=== PATIENT | male | born 1945 | race Hispanic/Latino ===

== ENCOUNTER 2017-10-20 17:12 | Observation (INO) | payer MEDICARE ==
[2017-10-20] MEDS ORDERED: Sodium Chloride 0.9% 1,000 ML IV ONE ×2 (17:45→17:46)
--- NOTE | 2017-10-20 17:49 | C.PDOC ---
History Of Present Illness <Marii Haas - Last Filed: 10/20/17 18:36> <Rosalind Duran - Last Filed: 10/20/17 19:37> 72 yo male w/PMHx of HTN, alcohol use daily, morbid obesity, BIBA for evaluation of fall/[id number] episode sustained AMBULATORY CARE NURSE. Pt admits, " was drinking few beer today, went outside to bring my car, open gait and fell down" . AT present time, pt appears intoxicated, but AAO#3, not in any apparent distress, pt denies any active complaints at present time. As per EMS, FSBS on scene >500. Pt admits, leaves alone, appears unkept. (Marii Haas) History Per: Patient, EMS <Marii Haas - Last Filed: 10/20/17 18:36> <Rosalind Duran - Last Filed: 10/20/17 19:37> Time Seen by Provider: 10/20/17 17:34 Chief Complaint (Nursing): Weakness/Neurological Deficit Past Medical History Reviewed: Historical Data, Nursing Documentation, Vital Signs - Medical History PMH: HTN Other PMH: morbid obesity Surgical History: No Surg Hx Family History: States: No Known Family Hx - Social History Hx Tobacco Use: No Hx Alcohol Use: Yes Hx Substance Use: No <SaminaMarii - Last Filed: 10/20/17 18:36> Vital Signs: Last Vital Signs Temp 98.9 F 10/20/17 17:28 Pulse 107 H 10/20/17 17:28 Resp 16 10/20/17 17:28 BP 168/89 H 10/20/17 17:28 Pulse Ox 96 10/20/17 18:38 Review Of Systems Except As Marked, All Systems Reviewed And Found Negative. Constitutional: Negative for: Fever, Chills Eyes: Negative for: Vision Change ENT: Negative for: Ear Discharge, Nose Discharge, Throat Pain, Throat Swelling Cardiovascular: Negative for: Chest Pain, Palpitations, Orthopnea Respiratory: Negative for: Cough, Shortness of Breath Gastrointestinal: Negative for: Nausea, Vomiting, Abdominal Pain, Diarrhea Genitourinary: Negative for: Incontinence Musculoskeletal: Negative for: Neck Pain, Back Pain Skin: Negative for: Rash Neurological: Positive for: Altered Mental Status. Negative for: Weakness, Numbness, Headache, Dizziness <Marii Haas - Last Filed: 10/20/17 18:36> Physical Exam - Physical Exam Appears: Well, Non-toxic, No Acute Distress, Unkempt Skin: Normal Color, Warm, No Rash, No Ecchymosis Head: Atraumatic, Normacephalic Eye(s): bilateral: PERRL Nose: No Flaring, No Discharge, No Deformity, No Tenderness Oral Mucosa: Moist, No Drooling, No Trismus, Other (strong alcohol odor) Tongue: Normal Appearing Lips: Normal Appearing Throat: No Drooling Neck: Normal ROM, Trachea Midline, No Midline Cervical Tenderness, No Paracervical Tenderness, No Step Off Deformity, Supple Cardiovascular: Rhythm Regular (tachy), No Murmur, No JVD Respiratory: No Decreased Breath Sounds, No Accessory Muscle Use, No Rales, No Rhonchi, No Stridor, No Wheezing, No Plerual Rub Gastrointestinal/Abdominal: Soft, No Tenderness, Distention, No Guarding, No Rebound Back: No CVA Tenderness Extremity: Normal ROM, Tenderness (mild over Right olecranon, nopalpable defromity. NO open wound), No Pedal Edema Neurological/Psych: Oriented x3, Normal Speech, Normal Motor, Normal Sensation, Normal Reflexes <Marii Haas Last Filed: 10/20/17 18:36> ED Course And Treatment O2 Sat by Pulse Oximetry: 96 Pulse Ox Interpretation: Normal - Radiology CXR: Interpreted by Me, Viewed By Me CXR Interpretation: Yes: Cardiomegaly - Other Rad Right elbow X-Ray: Interpreted by Me, Viewed By Me Interpretation: (+) olecranon fx <Marii Haas - Last Filed: 10/20/17 18:36> - Laboratory Results Result Diagrams: 10/20/17 18:57 10/20/17 18:57 Lab Interpretation: Abnormal (WBC 17.3, glucose 33 5,HCO3 18,) - CT Scan/US Head Other Rad Studies (CT/US): Read By Radiologist, Radiology Report Reviewed CT/US Interpretation: EXAM: CT Head Without Intravenous Contrast. EXAM DATE/ TIME: Examination ordered 10/20/2017 5:46 PM. Image number total count reviewed 400. CLINICAL HISTORY: The patient is 72 years old and is male; Signs and symptoms; Altered mental status/memory loss;. Confusion or disorientation; Additional info: [facility] Facility exam id and description: Ct_heads head w/o. contrast. TECHNIQUE: Axial computed tomography images of the head/brain without intravenous contrast. All CT scans at. this facility use at least one of these dose optimization techniques: automated exposure control; mA. and/or kV adjustment per patient size (includes targeted exams where dose is matched to clinical. indication); or iterative reconstruction. Coronal and sagittal reformatted images were created and reviewed. COMPARISON: No relevant prior studies available. FINDINGS: BRAIN: Periventricular hypoattenuation suggestive of chronic ischemic changes. No hemorrhage. VENTRICLES: Unremarkable. No ventriculomegaly. BONES/JOINTS: Unremarkable. No acute fracture. SOFT TISSUES: Unremarkable. SINUSES: Unremarkable as visualized. No acute sinusitis. MASTOID AIR CELLS: Unremarkable as visualized. No mastoid effusion. IMPRESSION: Periventricular hypoattenuation suggestive of chronic ischemic changes. Progress Note: Patient placed in a posterior splint and sling. Reevaluation Time: 19:29 Reassessment Condition: Unchanged - Physician Consult Information Time Consulting Physician Contacted: 19:29 Physician Contacted: Tian Nash Outcome Of Conversation: Patient to remain in hospital for observation for alcohol intoxication with possible syncope, fall with olecranon fracture. <Rosalind Duran - Last Filed: 10/20/17 19:37> Disposition <Marii Haas - Last Filed: 10/20/17 18:36> - Disposition Disposition Time: 19:36 - POA Present On Arrival: Poor Glycemic Control <Rosalind Duran - Last Filed: 10/20/17 19:37> - Disposition Disposition: HOSPITALIZED Condition: FAIR - Clinical Impression Clinical Impression: Alcohol intoxication, Syncope, Closed olecranon fracture
[2017-10-20 18:38] LABS: URINE BILIRUBIN NEGATIVE (NEGATIVE); URINE CLARITY Clear (Clear); URINE COLOR Yellow (YELLOW); URINE GLUCOSE (UA) 3+ mg/dL (Normal); URINE LEUKOCYTE ESTERASE NEG Leu/uL (Negative); URINE PROTEIN NEGATIVE (NEGATIVE); URINE UROBILINOGEN NORMAL mg/dL (0.2-1.0)
--- NOTE | 2017-10-20 18:41 | RAD ---
HISTORY: COMPARISON: No prior. TECHNIQUE: Chest PA and lateral FINDINGS: LINES AND TUBES: None. LUNG AND PLEURA: The lungs are well inflated and clear. No pleural effusion or pneumothorax. HEART AND MEDIASTINUM: There is moderate cardiomegaly. The hilar and mediastinal contours are within normal limits. SKELETAL STRUCTURES: The bony structures are within normal limits for the patient's age. VISUALIZED UPPER ABDOMEN: Normal. OTHER FINDINGS: None. IMPRESSION: No active pulmonary disease. Moderate cardiomegaly.
--- NOTE | 2017-10-20 18:44 | RAD ---
Date of service: 10/20/2017 PROCEDURE: Radiographs of the right elbow. HISTORY: pain COMPARISON: No prior. FINDINGS: BONES: There is an acute mildly distracted fracture in the olecranon process with 5 mm distraction of fracture fragments. There is a linear ossific density superior to the radial head in the lateral joint space and cortical step-off in the radial head JOINTS: Normal. No osteoarthritis. SOFT TISSUES: There is moderate periarticular soft tissue swelling. JOINT EFFUSION: Small joint effusion. OTHER FINDINGS: There are atherosclerotic vascular calcifications. IMPRESSION: Acute mildly distracted fracture in the olecranon process. Question of acute mildly displaced intra-articular fracture in the head of the radius. CT scan of the elbow joint would be helpful for further evaluation. Small joint effusion.
[2017-10-20 18:46] LABS: URINE BLOOD TRACE (NEGATIVE)
[2017-10-20 19:02] LABS: BARBITURATES, UR NEGATIVE (NEGATIVE); BENZODIAZEPINES, UR NEGATIVE (NEGATIVE); OPIATES, UR NEGATIVE (NEGATIVE); PHENCYCLIDINE, UR NEGATIVE (NEGATIVE)
[2017-10-20 19:09] LABS: BASO # 0.1 K/uL (0.0-0.2); BASO % 0.5 % (0.0-2.0); EOS % 0.1 % (0.0-4.0); HEMOGLOBIN 12.7 g/dL (12.0-18.0); LYMPH % 5.7 % (20.0-40.0); MEAN CELL VOLUME 90.3 fL (80.0-94.0); MEAN CORPUSCULAR HEMOGLOBIN 29.8 pg (27.0-31.0); MEAN PLATELET VOLUME 8.9 fL (7.2-11.7); MONO # 1.5 K/uL (0.0-0.8); MONO % 8.6 % (0.0-10.0); NEUT # 14.7 K/uL (1.8-7.0); NEUT % 85.1 % (50.0-75.0); NRBC % 0.1 % (0.0-2.0); PLATELET COUNT 251 K/uL (130-400); RBC 4.27 Mil/uL (4.40-5.90); RED CELL DISTRIBUTION WIDTH 13.9 % (11.5-14.5); WHITE BLOOD COUNT 17.3 K/uL (4.8-10.8)
[2017-10-20 19:16] LABS: ALB/GLOB RATIO 1.2 (1.0-2.1); ALBUMIN 4.3 g/dL (3.5-5.0); ALT/SGPT 28 U/L (21-72); AST/SGOT 25 U/L (17-59); BLOOD UREA NITROGEN 20 mg/dL (9-20); CALCIUM 8.6 mg/dl (8.6-10.4); GFR AFRICAN-AMERICAN > 60; GFR NON-AFRICAN AMERICAN > 60
[2017-10-20 19:27] LABS: INR 1.1
[2017-10-20 19:36] LABS: LYMPHOCYTE 7 % (20-40); MONOCYTE 8 % (0-10)
[2017-10-20 19:37] LABS: BANDS 17 % (0-2); NEUTROPHIL 68 % (50-75); PLATELET ESTIMATE NORMAL (NORMAL); TOTAL CELLS COUNTED 100
[2017-10-20 19:38] LABS: LARGE PLATELETS PRESENT; MICROCYTOSIS SLIGHT; PLATELET CLUMPS PRESENT
[2017-10-20] MEDS ORDERED: Glucagon Recombinant 1 mg Inj IM PRN (22:41)
[2017-10-20] MEDS ORDERED: Dextrose 50% SYRINGE Inj (50 ml) IV PRN (22:41)
--- NOTE | 2017-10-20 23:36 | CP.PCM.HP ---
<Katelyn Carbajal E - Last Filed: 10/21/17 00:14> History of Present Illness - History of Present Illness History of Present Illness: CC: Fall HPI: (Patient is a poor historian) Patient is a 72 year old male with past medical history HTN and DM, who presents to the ED via ambulance for noted fall by neighbors. As per patient he was on his way to go park his car in his garage when he had a fall and landed on his right hand. Patient states that he had 4-5 cans of beer before the fall. During the encounter, patient seems very defensive stating "what's the problem, I only had a few beers to drink". Patient denies any symptoms but does admit to pain in his right arm. PMD: Dr. Brigido Garzon PMHx: HTN and DM PSHx: Denies FHx: Denies Medications: Patient is unable to recall Allergies: Denies Social Hx: Lives alone. Admits to daily/Q2D of alcoholic beverages (patient did not quantify), denies current or former use of tobacco or illicit drugs Present on Admission - Present on Admission Any Indicators Present on Admission: No Review of Systems - Constitutional Constitutional: absent: Chills, Fever, Headache, Weakness - EENT Eyes: absent: Blurred Vision, Change in Vision Ears: absent: Dizziness - Cardiovascular Cardiovascular: absent: As Per HPI, Chest Pain, Diaphoresis, Dyspnea, Lightheadedness, Palpitations - Respiratory Respiratory: absent: Cough, Dyspnea - Gastrointestinal Gastrointestinal: absent: Abdominal Pain, Diarrhea, Nausea, Vomiting - Musculoskeletal Musculoskeletal: absent: Numbness, Tingling - Neurological Neurological: absent: Dizziness, Numbness, Headaches, Tingling, Weakness Additional comments: Unsteady gait - Endocrine Endocrine: absent: Fatigue, Palpitations Past Patient History - Past Social History Smoking Status: Never Smoked - CARDIAC Hx Hypertension: Yes - ENDOCRINE/METABOLIC Hx Endocrine Disorders: Yes Hx Diabetes Mellitus Type 2: Yes - PSYCHIATRIC Hx Substance Use: No - SURGICAL HISTORY Hx Surgeries: No Meds Allergies/Adverse Reactions: Allergies Allergy/AdvReac Type Severity Reaction Status Date / Time No Known Allergies Allergy Verified 10/20/17 17:45 Physical Exam - Constitutional Appears: No Acute Distress - Head Exam Head Exam: ATRAUMATIC, NORMAL INSPECTION - GI/Abdominal Exam GI & Abdominal Exam: Normal Bowel Sounds, Soft. absent: Distended, Firm, Guarding - Extremities Exam Extremities exam: Positive for: normal inspection. Negative for: calf tenderness, pedal edema - Back Exam Back exam: NORMAL INSPECTION. absent: CVA tenderness (L), CVA tenderness (R) - Neurological Exam Neurological exam: Alert, Oriented x3 - Psychiatric Exam Psychiatric exam: Agitated - Skin Skin Exam: Normal Color Results - Vital Signs Recent Vital Signs: Last Vital Signs Temp 98.2 F 10/20/17 21:24 Pulse 104 H 10/20/17 23:33 Resp 16 10/20/17 23:33 BP 149/75 10/20/17 23:33 Pulse Ox 96 10/20/17 23:33 - Labs Result Diagrams: 10/20/17 18:57 10/20/17 18:57 Labs: Laboratory Results - last 24 hr 10/20/17 10/20/17 10/20/17 17:34 18:30 18:30 WBC RBC Hgb Hct MCV MCH MCHC RDW Plt Count MPV Neut % (Auto) Lymph % (Auto) [place] % (Auto) Eos % (Auto) Baso % (Auto) Neut # (Auto) Lymph # (Auto) [place] # (Auto) Eos # (Auto) Baso # (Auto) Neutrophils % (Manual) Band Neutrophils % Lymphocytes % (Manual) Monocytes % (Manual) Platelet Estimate Plt Clumps, EDTA Large Platelets Microcytosis (manual) PT INR APTT Sodium Potassium Chloride Carbon Dioxide Anion Gap BUN Creatinine Est GFR ( Amer) Est GFR (Non-Af Amer) POC Glucose (mg/dL) 334 H Random Glucose Calcium Total Bilirubin AST ALT Alkaline Phosphatase Total Creatine Kinase Troponin I Total Protein Albumin Globulin Albumin/Globulin Ratio Urine Color Yellow Urine Clarity Clear Urine pH 5.0 Ur Specific Dat[place] 1.018 Urine Protein Negative Urine Glucose (UA) 3+ H Urine Ketones Negative Urine Blood Trace H Urine Nitrate Negative Urine Bilirubin Negative Urine Urobilinogen Normal Ur Leukocyte Esterase Neg Urine WBC (Auto) < 1 Urine Opiates Screen Negative Urine Methadone Screen Negative Ur Barbiturates Screen Negative Ur Phencyclidine Scrn Negative Ur Amphetamines Screen Negative U Benzodiazepines Scrn Negative U Oth Cocaine Metabols Negative U Cannabinoids Screen Negative Alcohol, Quantitative 10/20/17 10/20/17 10/20/17 18:57 18:57 19:14 WBC 17.3 H RBC 4.27 L Hgb 12.7 Hct 38.6 MCV 90.3 MCH 29.8 MCHC 33.0 RDW 13.9 Plt Count 251 MPV 8.9 Neut % (Auto) 85.1 H Lymph % (Auto) 5.7 L [place] % (Auto) 8.6 Eos % (Auto) 0.1 Baso % (Auto) 0.5 Neut # (Auto) 14.7 H Lymph # (Auto) 1.0 [place] # (Auto) 1.5 H Eos # (Auto) 0.0 Baso # (Auto) 0.1 Neutrophils % (Manual) 68 Band Neutrophils % 17 H* Lymphocytes % (Manual) 7 L Monocytes % (Manual) 8 Platelet Estimate Normal Plt Clumps, EDTA Present Large Platelets Present Microcytosis (manual) Slight PT 12.0 INR 1.1 APTT 27 Sodium 133 Potassium 4.5 Chloride 97 L Carbon Dioxide 18 L Anion Gap 23 H BUN 20 Creatinine 0.9 Est GFR ( Amer) > 60 Est GFR (Non-Af Amer) > 60 POC Glucose (mg/dL) Random Glucose 335 H Calcium 8.6 Total Bilirubin 0.4 AST 25 ALT 28 Alkaline Phosphatase 72 Total Creatine Kinase 247 H Troponin I 0.0240 Total Protein 7.8 Albumin 4.3 Globulin 3.5 Albumin/Globulin Ratio 1.2 Urine Color Urine Clarity Urine pH Ur Specific Datto Urine Protein Urine Glucose (UA) Urine Ketones Urine Blood Urine Nitrate Urine Bilirubin Urine Urobilinogen Ur Leukocyte Esterase Urine WBC (Auto) Urine Opiates Screen Urine Methadone Screen Ur Barbiturates Screen Ur Phencyclidine Scrn Ur Amphetamines Screen U Benzodiazepines Scrn U Oth Cocaine Metabols U Cannabinoids Screen Alcohol, Quantitative 176 H Assessment & Plan (1) Alcohol intoxication Assessment and Plan: Alcohol serum on admission: 176 [facility] protocol Ativan 1mg PO Q3H PRN : Alcohol withdrawal symptoms Folic acid 1 tab PO daily Thiamine 100mg PO daily Multivitamin Psychiatric consultation Status: Acute (2) Fall Assessment and Plan: Possibly secondary to alcohol abuse/intoxication HEAD CT :BRAIN: Periventricular hypoattenuation suggestive of chronic ischemic changes. No hemorrhage. VENTRICLES: Unremarkable. No ventriculomegaly. BONES/ JOINTS: Unremarkable. No acute fracture. SOFT TISSUES: Unremarkable. SINUSES: Unremarkable as visualized. No acute sinusitis. MASTOID AIR CELLS: Unremarkable as visualized. No mastoid effusion. IMPRESSION: Periventricular hypoattenuation suggestive of chronic ischemic changes. Status: Acute (3) Closed olecranon fracture Assessment and Plan: Orthopedic consultation for any further recommendation Secondary to fall Right elbow X-ray: Acute mildly fracture in the olecranon process. Question of acute midly displaced inter-articular fracture in the head of the radius. With cast and sling Status: Acute (4) History of diabetes mellitus Assessment and Plan: Accuchecks ISS- High dose F/u Hgba1c and Lipid panel Status: Acute (5) History of hypertension Assessment and Plan: Vitals Q4H Will confirm home medication with PMD Status: Acute (6) Prophylactic measure Assessment and Plan: GI: Not indicated DVT: SCDs and lovenox 30mg SC daily PT/OT Status: Acute <Tian Nash P - Last Filed: 10/21/17 01:13> Results - Vital Signs Recent Vital Signs: Last Vital Signs Temp 98.2 F 10/21/17 00:28 Pulse 109 H 10/21/17 00:28 Resp 20 10/21/17 00:28 BP 145/66 10/21/17 00:28 Pulse Ox 96 10/21/17 00:28 - Labs Result Diagrams: 10/20/17 18:57 10/20/17 18:57 Labs: Laboratory Results - last 24 hr 10/20/17 10/20/17 10/20/17 17:34 18:30 18:30 WBC RBC Hgb Hct MCV MCH MCHC RDW Plt Count MPV Neut % (Auto) Lymph % (Auto) [place] % (Auto) Eos % (Auto) Baso % (Auto) Neut # (Auto) Lymph # (Auto) [place] # (Auto) Eos # (Auto) Baso # (Auto) Neutrophils % (Manual) Band Neutrophils % Lymphocytes % (Manual) Monocytes % (Manual) Platelet Estimate Plt Clumps, EDTA Large Platelets Microcytosis (manual) PT INR APTT Sodium Potassium Chloride Carbon Dioxide Anion Gap BUN Creatinine Est GFR ( Amer) Est GFR (Non-Af Amer) POC Glucose (mg/dL) 334 H Random Glucose Calcium Total Bilirubin AST ALT Alkaline Phosphatase Total Creatine Kinase Troponin I Total Protein Albumin Globulin Albumin/Globulin Ratio Urine Color Yellow Urine Clarity Clear Urine pH 5.0 Ur Specific Datto 1.018 Urine Protein Negative Urine Glucose (UA) 3+ H Urine Ketones Negative Urine Blood Trace H Urine Nitrate Negative Urine Bilirubin Negative Urine Urobilinogen Normal Ur Leukocyte Esterase Neg Urine WBC (Auto) < 1 Urine Opiates Screen Negative Urine Methadone Screen Negative Ur Barbiturates Screen Negative Ur Phencyclidine Scrn Negative Ur Amphetamines Screen Negative U Benzodiazepines Scrn Negative U Oth Cocaine Metabols Negative U Cannabinoids Screen Negative Alcohol, Quantitative 10/20/17 10/20/17 10/20/17 18:57 18:57 19:14 WBC 17.3 H RBC 4.27 L Hgb 12.7 Hct 38.6 MCV 90.3 MCH 29.8 MCHC 33.0 RDW 13.9 Plt Count 251 MPV 8.9 Neut % (Auto) 85.1 H Lymph % (Auto) 5.7 L [place] % (Auto) 8.6 Eos % (Auto) 0.1 Baso % (Auto) 0.5 Neut # (Auto) 14.7 H Lymph # (Auto) 1.0 [place] # (Auto) 1.5 H Eos # (Auto) 0.0 Baso # (Auto) 0.1 Neutrophils % (Manual) 68 Band Neutrophils % 17 H* Lymphocytes % (Manual) 7 L Monocytes % (Manual) 8 Platelet Estimate Normal Plt Clumps, EDTA Present Large Platelets Present Microcytosis (manual) Slight PT 12.0 INR 1.1 APTT 27 Sodium 133 Potassium 4.5 Chloride 97 L Carbon Dioxide 18 L Anion Gap 23 H BUN 20 Creatinine 0.9 Est GFR ( Amer) > 60 Est GFR (Non-Af Amer) > 60 POC Glucose (mg/dL) Random Glucose 335 H Calcium 8.6 Total Bilirubin 0.4 AST 25 ALT 28 Alkaline Phosphatase 72 Total Creatine Kinase 247 H Troponin I 0.0240 Total Protein 7.8 Albumin 4.3 Globulin 3.5 Albumin/Globulin Ratio 1.2 Urine Color Urine Clarity Urine pH Ur Specific Datto Urine Protein Urine Glucose (UA) Urine Ketones Urine Blood Urine Nitrate Urine Bilirubin Urine Urobilinogen Ur Leukocyte Esterase Urine WBC (Auto) Urine Opiates Screen Urine Methadone Screen Ur Barbiturates Screen Ur Phencyclidine Scrn Ur Amphetamines Screen U Benzodiazepines Scrn U Oth Cocaine Metabols U Cannabinoids Screen Alcohol, Quantitative 176 H Attending/Attestation - Attestation I have personally seen and examined this patient.: Yes I have fully participated in the care of the patient.: Yes I have reviewed all pertinent clinical information: Yes Notes (Text): 10/21/17 01:07 Assessment Fall ? syncope, patient denies though, dd of alcohol related siezure, fall, syncope. Right arm closed mildly displaced olecranon fracture due to fall, splinted in ER Alcohol intoxication, unclear about the extent of drinking Anxious Obese H/o HTN DM uncontrolled Patient poor historian, not willing to answer questions just requesting to sleep due to sleep time, although not lethargic Leucocytosis, unclear etiology, not febrile though Plan Know meds form PMD Sliding scale coverage Observe in tele ? passed out CIWA protocol, scheduled librium with parameter, prn ativan, thiamine, MVT, fa Repeat labs, procalcitonin Sliding scale coverage PT/OT GI/DVT prophylaxis See orders for detail.
[2017-10-21 00:29] VITALS: RESP 20
[2017-10-21 07:42] LABS: BASO % 0.2 % (0.0-2.0); HEMOGLOBIN 13.3 g/dL (12.0-18.0); LYMPH # 1.3 K/uL (1.0-4.3); LYMPH % 10.7 % (20.0-40.0); MEAN CELL VOLUME 89.4 fL (80.0-94.0); MEAN CORPUSCULAR HEMOGLOBIN 30.7 pg (27.0-31.0); MEAN CORPUSCULAR HGB CONC 34.4 g/dL (33.0-37.0); MEAN PLATELET VOLUME 9.3 fL (7.2-11.7); MONO # 1.3 K/uL (0.0-0.8); NEUT # 9.6 K/uL (1.8-7.0); NEUT % 78.1 % (50.0-75.0); RBC 4.32 Mil/uL (4.40-5.90); RED CELL DISTRIBUTION WIDTH 13.4 % (11.5-14.5); WHITE BLOOD COUNT 12.2 K/uL (4.8-10.8)
[2017-10-21 07:54] LABS: ALB/GLOB RATIO 1.4 (1.0-2.1); ALBUMIN 4.6 g/dL (3.5-5.0); ALT/SGPT 33 U/L (21-72); AST/SGOT 54 U/L (17-59); BLOOD UREA NITROGEN 16 mg/dL (9-20); GFR AFRICAN-AMERICAN > 60; GFR NON-AFRICAN AMERICAN > 60; HDL CHOLESTEROL 46 mg/dL (30-70)
[2017-10-21 07:57] LABS: LDL CHOLESTEROL 115 mg/dL (0-129)
--- NOTE | 2017-10-21 08:06 | CT ---
Date of service: 10/20/2017 PROCEDURE: CT HEAD WITHOUT CONTRAST. HISTORY: Altered mental status COMPARISON: None available. TECHNIQUE: Axial computed tomography images were obtained through the head/brain without intravenous contrast. Radiation dose: Total exam DLP = 993 mGy-cm. This CT exam was performed using one or more of the following dose reduction techniques: Automated exposure control, adjustment of the mA and/or kV according to patient size, and/or use of iterative reconstruction technique. FINDINGS: HEMORRHAGE: No intracranial hemorrhage. BRAIN: No mass effect or edema. Scattered focal lucencies in the subcortical and periventricular white matter suggestive for chronic microvascular ischemic change. Punctate bilateral basal ganglia lacunar infarcts. VENTRICLES: Unremarkable. No hydrocephalus. CALVARIUM: Unremarkable. PARANASAL SINUSES: Unremarkable as visualized. No significant inflammatory changes. MASTOID AIR CELLS: Unremarkable as visualized. No inflammatory changes. OTHER FINDINGS: None. IMPRESSION: Chronic microvascular ischemic changes. If symptoms persists, consider correlation with MRI. These findings were preliminarily reported at 7:10 p.m. on 10/20/[address] Rachel Tam from [facility].
[2017-10-21] MEDS: (Novolog) Insulin Aspart, Recombinant 100 u/ml 10 ml vial SC SCH ×3 (08:33→18:02)
[2017-10-21] MEDS: Enoxaparin 30 mg Syringe SC SCH (09:56)
[2017-10-21] MEDS: Multiple Vitamins Tab PO SCH (09:56)
--- NOTE | 2017-10-21 15:44 | CP.PCM.PN ---
<Kaushik Armas - Last Filed: 10/21/17 16:09> Subjective - Date & Time of Evaluation Date of Evaluation: 10/21/17 Time of Evaluation: 15:42 - Subjective Subjective: PGY-1 Medicine Progress note for Dr. Otero's service Patient seen and examined at bedside. Patient offers no acute complaints. Patient states his right arm is not in any pain currently. Patient is noted to have slight tremor in left hand but patient attributes that to nervousness of being in hospital. Patient denies chest pain, sob, tremors, n/v, dizziness, headaches, audio/visual hallucinations, palpitations. Objective - Vital Signs/Intake and Output Vital Signs (last 24 hours): Temp Pulse Resp BP Pulse Ox 98.5 F 110 H 20 154/80 H 96 10/21/17 08:10 10/21/17 08:10 10/21/17 08:10 10/21/17 08:10 10/21/17 09:03 Intake and Output: 10/21/17 10/21/17 06:59 18:59 Intake Total 200 500 Balance 200 500 - Medications Medications: Current Medications Clonidine HCl (Catapres-Tts2 0.2 Mg/24 Hr) 1 patch TD QWK [facility] Dextrose (Dextrose 50% Inj) 0 ml IV STAT PRN; Protocol PRN Reason: Hypoglycemia Protocol Dextrose (Glutose 15) 0 gm PO ONCE PRN; Protocol PRN Reason: Hypoglycemia Protocol Enoxaparin Sodium (Lovenox) 30 mg SC DAILY [facility] Last Admin: 10/21/17 09:56 Dose: 30 mg Folic Acid (Folic Acid) 1 mg PO DAILY [facility] Last Admin: 10/21/17 09:56 Dose: 1 mg Glucagon (Glucagen Diagnostic Kit) 0 mg IM STAT PRN; Protocol PRN Reason: Hypoglycemia Protocol Hydrochlorothiazide (Hydrodiuril) 25 mg PO DAILY [facility] Last Admin: 10/21/17 12:56 Dose: 25 mg Dextrose (Dextrose 5% In Water 1000 Ml) 1,000 mls @ 0 mls/hr IV .Q0M PRN; Protocol; Per Protocol PRN Reason: Hypoglycemia Protocol Insulin Aspart (Novolog) 0 unit SC ACHS [facility] PRN Reason: Protocol Last Admin: 10/21/17 11:57 Dose: 4 units Lisinopril (Zestril) 20 mg PO DAILY [facility] Last Admin: 10/21/17 12:56 Dose: 20 mg Lorazepam (Ativan) 1 mg PO Q3H PRN PRN Reason: Symptoms of alcohol withdrawl Last Admin: 10/21/17 02:11 Dose: 1 mg Metformin HCl (Glucophage) 850 mg PO BIDCC [facility] Multivitamins (Hexavitamin) 1 tab PO DAILY [facility] Last Admin: 10/21/17 09:56 Dose: 1 tab Pneumococcal Polyvalent Vaccine (Pneumovax 23 Vaccine) 0.5 ml IM .ONCE ONE Stop: 10/23/17 10:01 Thiamine HCl (Vitamin B1 Tab) 100 mg PO DAILY [facility] Last Admin: 10/21/17 09:56 Dose: 100 mg - Labs Labs: 10/21/17 07:23 10/21/17 07:23 PT 12.0 SECONDS (9.7-12.2) 10/20/17 19:14 INR 1.1 10/20/17 19:14 APTT 27 SECONDS (21-34) 10/20/17 19:14 - Constitutional Appears: Non-toxic, No Acute Distress - Head Exam Head Exam: NORMAL INSPECTION, NORMOCEPHALIC - Eye Exam Eye Exam: EOMI, Normal appearance. absent: Nystagmus, Scleral icterus - Respiratory Exam Respiratory Exam: Clear to Ausculation Bilateral, NORMAL BREATHING PATTERN. absent: Rales, Rhonchi, Wheezes - Cardiovascular Exam Cardiovascular Exam: Tachycardia, REGULAR RHYTHM, +S1, +S2 - GI/Abdominal Exam GI & Abdominal Exam: Soft, Normal Bowel Sounds. absent: Distended, Firm, Guarding, Tenderness - Extremities Exam Extremities Exam: Normal Inspection. absent: Calf Tenderness, Pedal Edema - Neurological Exam Neurological Exam: Alert, Awake, Normal Gait, Oriented x3 - Psychiatric Exam Psychiatric exam: Anxious. absent: Agitated - Skin Skin Exam: Intact, Normal Color. absent: Diaphoretic, Petechiae, Rash Assessment and Plan - Assessment and Plan (Free Text) Assessment: Patient is a 72 yo male who presents to the hospital for evaluation of a fall; patient was drinking 4-5 beers at the time of the fall; elbow xray shows acute mildly distracted fracture in the olecranon process. Question of acute mildly displaced intra-articular fracture in the head of the radius. CT scan of the elbow joint would ne helpful for further evaluation, no joint effusion. Plan: Olecranon Fracture Ortho Consulted- Dr. Power recommendations appreciated Splinted and Casted of right elbow starting from hands and extending to proximal elbow ETOH use Multivitamins 1 tab po daily Thiamine 100mg po daily Folic acid 1mg po daily CIWA protocol; Ativan 1mg po q3h prn HTN Lisinopril 20mg po daily [facility] HCTZ 25 mg po daily [facility] Clonidine .2mg/24hr patch (1 patch per week) BP-154/80; Restarted home meds above Diabetes Meillitus A1C=8.9 Metformin 850mg po bid Hypoglycemic Protocol ACHS Prophylaxis Lovenox 30 mg sc daily [facility] GI ppx: Not indicated at this time Patient management discussed with attending, Dr. Knight <Les Knight H - Last Filed: 10/21/17 17:48> Objective - Vital Signs/Intake and Output Vital Signs (last 24 hours): Temp Pulse Resp BP Pulse Ox 98.9 F 112 H 20 148/73 98 10/21/17 16:25 10/21/17 16:25 10/21/17 16:25 10/21/17 16:25 10/21/17 16:25 Intake and Output: 10/21/17 10/21/17 06:59 18:59 Intake Total 200 500 Balance 200 500 - Medications Medications: Current Medications Clonidine HCl (Catapres-Tts2 0.2 Mg/24 Hr) 1 patch TD QWK [facility] Dextrose (Dextrose 50% Inj) 0 ml IV STAT PRN; Protocol PRN Reason: Hypoglycemia Protocol Dextrose (Glutose 15) 0 gm PO ONCE PRN; Protocol PRN Reason: Hypoglycemia Protocol Enoxaparin Sodium (Lovenox) 30 mg SC DAILY [facility] Last Admin: 10/21/17 09:56 Dose: 30 mg Folic Acid (Folic Acid) 1 mg PO DAILY [facility] Last Admin: 10/21/17 09:56 Dose: 1 mg Glucagon (Glucagen Diagnostic Kit) 0 mg IM STAT PRN; Protocol PRN Reason: Hypoglycemia Protocol Hydrochlorothiazide (Hydrodiuril) 25 mg PO DAILY [facility] Last Admin: 10/21/17 12:56 Dose: 25 mg Dextrose (Dextrose 5% In Water 1000 Ml) 1,000 mls @ 0 mls/hr IV .Q0M PRN; Protocol; Per Protocol PRN Reason: Hypoglycemia Protocol Insulin Aspart (Novolog) 0 unit SC ACHS [facility] PRN Reason: Protocol Last Admin: 10/21/17 11:57 Dose: 4 units Lisinopril (Zestril) 20 mg PO DAILY [facility] Last Admin: 10/21/17 12:56 Dose: 20 mg Lorazepam (Ativan) 1 mg PO Q3H PRN PRN Reason: Symptoms of alcohol withdrawl Last Admin: 10/21/17 02:11 Dose: 1 mg Metformin HCl (Glucophage) 850 mg PO BIDCC [facility] Multivitamins (Hexavitamin) 1 tab PO DAILY [facility] Last Admin: 10/21/17 09:56 Dose: 1 tab Pneumococcal Polyvalent Vaccine (Pneumovax 23 Vaccine) 0.5 ml IM .ONCE ONE Stop: 10/23/17 10:01 Thiamine HCl (Vitamin B1 Tab) 100 mg PO DAILY [facility] Last Admin: 10/21/17 09:56 Dose: 100 mg - Labs Labs: 10/21/17 07:23 10/21/17 07:23 PT 12.0 SECONDS (9.7-12.2) 10/20/17 19:14 INR 1.1 10/20/17 19:14 APTT 27 SECONDS (21-34) 10/20/17 19:14 Attending/Attestation - Attestation I have personally seen and examined this patient.: Yes I have fully participated in the care of the patient.: Yes I have reviewed all pertinent clinical information, including history, physical exam and plan: Yes Notes (Text): 10/21/17 17:44 Medical attending: Patient was seen and examined by me earlier in the day. He was not in any acute distress when we saw him and was not in active withdrawl from alcohol. This being said he will need careful monitoring since I am really concerned he drinks much heavier than what he is telling us. For now will montiro the patient as he completes the alcohol CIWA ativan taper protocol. He will also need orthopedic evaluation with reguards to the elbow as well. He denies hitting other places in his body. The patient was able to stand up and walk around slowly in the room with us on exam. Les Knight
[2017-10-22] MEDS: (Novolog) Insulin Aspart, Recombinant 100 u/ml 10 ml vial SC SCH ×4 (00:15→17:57)
[2017-10-22 06:47] LABS: BASO % 0.5 % (0.0-2.0); EOS % 0.1 % (0.0-4.0); HEMOGLOBIN 12.9 g/dL (12.0-18.0); LYMPH % 10.8 % (20.0-40.0); MEAN CELL VOLUME 89.3 fL (80.0-94.0); MEAN CORPUSCULAR HEMOGLOBIN 31.4 pg (27.0-31.0); MEAN CORPUSCULAR HGB CONC 35.2 g/dL (33.0-37.0); MEAN PLATELET VOLUME 8.9 fL (7.2-11.7); MONO # 1.1 K/uL (0.0-0.8); NEUT # 6.9 K/uL (1.8-7.0); NEUT % 76.6 % (50.0-75.0); RBC 4.12 Mil/uL (4.40-5.90); RED CELL DISTRIBUTION WIDTH 13.8 % (11.5-14.5)
[2017-10-22 07:05] LABS: ALB/GLOB RATIO 1.4 (1.0-2.1); ALT/SGPT 31 U/L (21-72); AST/SGOT 53 U/L (17-59); BLOOD UREA NITROGEN 17 mg/dL (9-20); CALCIUM 8.9 mg/dl (8.6-10.4); GFR AFRICAN-AMERICAN > 60; GFR NON-AFRICAN AMERICAN > 60
[2017-10-22 08:19] VITALS: O2SAT 95
[2017-10-22] MEDS: Enoxaparin 30 mg Syringe SC SCH (09:43)
[2017-10-22] MEDS: Multiple Vitamins Tab PO SCH (09:43)
--- NOTE | 2017-10-22 10:47 | CP.PCM.PN ---
Subjective - Date & Time of Evaluation Date of Evaluation: 10/22/17 Time of Evaluation: 10:45 - Subjective Subjective: PGY-1 Medicine Progress note for Dr. Knight's service Patient seen and examined at bedside. Patient offers no acute complaints. Patient denies pain in right arm. Patient denies chest pain, sob, n/v, palpitations, constipation, diarrhea, dysuria. Objective - Vital Signs/Intake and Output Vital Signs (last 24 hours): Temp Pulse Resp BP Pulse Ox 99.5 F 100 H 20 123/80 95 10/22/17 08:17 10/22/17 08:17 10/22/17 08:17 10/22/17 08:17 10/22/17 08:49 Intake and Output: 10/22/17 10/22/17 06:59 18:59 Intake Total 650 Balance 650 - Medications Medications: Current Medications Clonidine HCl (Catapres-Tts2 0.2 Mg/24 Hr) 1 patch TD QWK [facility] Last Admin: 10/21/17 22:20 Dose: 1 patch Dextrose (Dextrose 50% Inj) 0 ml IV STAT PRN; Protocol PRN Reason: Hypoglycemia Protocol Dextrose (Glutose 15) 0 gm PO ONCE PRN; Protocol PRN Reason: Hypoglycemia Protocol Enoxaparin Sodium (Lovenox) 30 mg SC DAILY [facility] Last Admin: 10/22/17 09:43 Dose: 30 mg Folic Acid (Folic Acid) 1 mg PO DAILY [facility] Last Admin: 10/22/17 09:43 Dose: 1 mg Glucagon (Glucagen Diagnostic Kit) 0 mg IM STAT PRN; Protocol PRN Reason: Hypoglycemia Protocol Hydrochlorothiazide (Hydrodiuril) 25 mg PO DAILY [facility] Last Admin: 10/22/17 09:43 Dose: 25 mg Dextrose (Dextrose 5% In Water 1000 Ml) 1,000 mls @ 0 mls/hr IV .Q0M PRN; Protocol; Per Protocol PRN Reason: Hypoglycemia Protocol Insulin Aspart (Novolog) 0 unit SC ACHS [facility] PRN Reason: Protocol Last Admin: 10/22/17 08:20 Dose: 4 units Lisinopril (Zestril) 20 mg PO DAILY [facility] Last Admin: 10/22/17 09:43 Dose: 20 mg Lorazepam (Ativan) 1 mg PO Q3H PRN PRN Reason: Symptoms of alcohol withdrawl Last Admin: 10/22/17 05:02 Dose: 1 mg Metformin HCl (Glucophage) 850 mg PO BIDCC [facility] Last Admin: 10/22/17 08:19 Dose: 850 mg Multivitamins (Hexavitamin) 1 tab PO DAILY [facility] Last Admin: 10/22/17 09:43 Dose: 1 tab Pneumococcal Polyvalent Vaccine (Pneumovax 23 Vaccine) 0.5 ml IM .ONCE ONE Stop: 10/23/17 10:01 Thiamine HCl (Vitamin B1 Tab) 100 mg PO DAILY [facility] Last Admin: 10/22/17 09:43 Dose: 100 mg - Labs Labs: 10/22/17 06:36 10/22/17 06:36 PT 12.0 SECONDS (9.7-12.2) 10/20/17 19:14 INR 1.1 10/20/17 19:14 APTT 27 SECONDS (21-34) 10/20/17 19:14 - Constitutional Appears: Non-toxic, No Acute Distress - Eye Exam Eye Exam: EOMI. absent: Nystagmus, Scleral icterus - Respiratory Exam Respiratory Exam: Clear to Ausculation Bilateral, NORMAL BREATHING PATTERN. absent: Rales, Rhonchi, Wheezes - Cardiovascular Exam Cardiovascular Exam: REGULAR RHYTHM, +S1, +S2. absent: Murmur - GI/Abdominal Exam GI & Abdominal Exam: Soft, Normal Bowel Sounds. absent: Distended, Firm, Guarding, Tenderness - Extremities Exam Extremities Exam: Normal Inspection. absent: Calf Tenderness, Pedal Edema - Back Exam Back Exam: NORMAL INSPECTION. absent: CVA tenderness (L), CVA tenderness (R) - Neurological Exam Neurological Exam: Alert, Awake, Normal Gait - Psychiatric Exam Psychiatric exam: Normal Affect, Normal Mood - Skin Skin Exam: Intact, Normal Color Assessment and Plan - Assessment and Plan (Free Text) Assessment: Patient is a 72 y.o male with PMH HTN and DM presents to the hospital for evaluation of a fall. Patient had xrays done showing an elbow fracture specifically in the olecranon; Dr. Power was consulted Plan: Olecranon Fracture Ortho Consulted- Dr. Power recommendations appreciated Splinted and Casted of right elbow starting from hands and extending to proximal elbow 10/20/17 Elbow Xray: Right elbow X-ray: Acute mildly fracture in the olecranon process. Question of acute midly displaced inter-articular fracture in the head of the radius ETOH intoxication Multivitamins 1 tab po daily Thiamine 100mg po daily Folic acid 1mg po daily CIWA protocol; Ativan 1mg po q3h prn HTN Lisinopril 20mg po daily [facility] HCTZ 25 mg po daily [facility] Clonidine .2mg/24hr patch (1 patch per week) BP-154/80; Restarted home meds above DM A1C=8.9 Metformin 850mg po bid Hypoglycemic Protocol ACHS Prophylaxis Lovenox 30 mg sc daily [facility] GI ppx: Not indicated at this time
[2017-10-22 16:18] VITALS: BP 136/77; PULSE 86; TEMP 99.2
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
[2017-10-23] MEDS ORDERED: Pneumococcal 23-Valent Vaccine IM ONE (10:00)
--- NOTE | 2017-10-24 22:09 | CARD ---
APPROVED REPORT Date of service: 10/20/2017 EKG Measurement Heart [id number] <Conclusion> Sinus tachycardia with 1st degree AV block Otherwise normal ECG
== END 2017-10-22 20:56 | disposition home or self-care (01) ==
LOC: C.ER 17:12 → C.9E 19:37 → C.3T 22:50
PROVIDERS: ADMIT Internal Medicine; ATTEND Internal Medicine
DX: S52.021A Displaced fracture of olecranon process without intraarticular extension of right ulna, initial encounter for closed fracture (principal); W19.XXXA Unspecified fall, initial encounter; F10.229 Alcohol dependence with intoxication, unspecified; E11.65 Type 2 diabetes mellitus with hyperglycemia; I10 Essential (primary) hypertension
CPT/HCPCS: 36415; 70450; 71046; 73080; 80053; 80061; 81001; 82550; 82948; 83036; 83735; 84100; 84484; 85025; 85610; 85730; 93005; 96360; 97116; 97162; 99285; G0378; G0480; G8978; G8979; J1650; J7030